=== PATIENT | female | born 1990 | race Caucasian/White ===

== ENCOUNTER 2020-02-17 19:01 | Emergency (ER) | payer OTHER ==
[2020-02-17] MEDS ORDERED: TETANUS & DIPHTHERIA TOX,ADULT 0.5 ML VIAL ONE (19:52)
[2020-02-17] MEDS ORDERED: ACETAMINOPHEN 500 MG TAB ONE (19:52)
--- NOTE | 2020-02-17 20:41 | ER ---
Nurse's Notes [facility] Name: Lou Purvis Age: 29 yrs Sex: Female : 1990 Arrival Date: 02/17/2020 Time: 19:04 Bed 24 Private MD: Diagnosis: Body Fluid Exposure;Puncture Wound from Fish Hook Presentation: 02/16 18:52 Chief complaint: Patient states: was on a call earlier with a pediatric pt (she works for [employer]) that had a fishhook in her, the pt started getting scared after the grandmother told her we would put needles in her. The fish hook came out of her pt and into herself on her on her left middle finger. Fish hook is no longer in her. Needs a HIV and Hepatitis panel drawn. Coronavirus screen: Client denies travel out of the [place] in the last 14 days. At this time, the client does not indicate any symptoms associated with coronavirus-19. Ebola Screen: No symptoms or risks identified at this time. Initial Sepsis Screen: Does the patient meet any 2 criteria? HR > 90 bpm. No. Patient's initial sepsis screen is negative. Does the patient have a suspected source of infection? No. Patient's initial sepsis screen is negative. Risk Assessment: Do you want to hurt yourself or someone else? Patient reports no desire to harm self or others. Onset of symptoms was February 17, 2020 at 13:00. 18:52 Method Of Arrival: Ambulatory sv 18:52 Acuity: DARRIN 3 sv Triage Assessment: 18:52 General: Appears in no apparent distress. comfortable, Behavior is calm, cooperative, sv appropriate for age. Pain: Denies pain. Neuro: Level of Consciousness is awake, alert, obeys commands, Oriented to person, place, time, situation, Moves all extremities. Full function Gait is steady. Respiratory: Airway is patent Respiratory effort is even, unlabored, Respiratory pattern is regular, symmetrical. Derm: Skin is intact, Skin is pink, warm \T\ dry. Injury Description: Puncture sustained to palmar aspect of distal phalanx of left middle finger was sustained 4-6 hours ago. Historical: - Allergies: 19:09 PENICILLINS; sv 19:09 Reglan; sv 19:09 Phenergan; sv - Home Meds: 19:09 Adderall XR Oral [Active]; Clonazepam Oral as needed [Active]; sv - Immunization history:: Last tetanus immunization: unknown. - Social history:: Smoking status: . Screenin:10 Abuse screen: Denies threats or abuse. Denies injuries from another. Nutritional sv screening: No deficits noted. Tuberculosis screening: No symptoms or risk factors identified. Fall Risk None identified. Vital Signs: 18:52 BP 135 / 102; Pulse 121; Resp 16; Temp 97.3; Pulse Ox 100% ; Weight 108.86 kg; Height 6 sv ft. 1 in. (185.42 cm); 18:52 Body Mass Index 31.66 (108.86 kg, 185.42 cm) sv ED Course: 19:04 Patient arrived in ED. 19:04 Alberto Doan MD is Attending Physician. [facility] 19:08 Triage completed. sv 19:09 Arm band placed on Patient placed in an exam room, on a stretcher. sv 19:10 Patient has correct armband on for positive identification. Bed in low position. sv 19:13 Report given to Tameka GIBSON. sv 20:00 Tameka Gibbs, RN is Primary Nurse. dm5 Administered Medications: 19:40 Drug: Tylenol 1000 mg Route: PO; 5 19:42 Drug: Tetanus-Diphtheria Toxoid Adult 0.5 ml {[employer] Specialist: [employer]. Exp: dm5 06/09/2021. Lot #: [id number]. } Route: IM; Site: right deltoid; 20:46 Drug: Doxycycline 100 mg Route: PO; dm5 Outcome: 20:41 Discharge ordered by . [facility] 20:46 Patient left the ED. 5 Signatures: Tameka Gibbs RN RN dm5 Verde, Stephanie, RN RN Alberto Doan MD MD [facility] Corrections: (The following items were deleted from the chart) 19:10 18:52 Chief complaint: Patient states: was on a call earlier with a pediatric pt that elizabeth had a fishhook in her, the pt started getting scared after the grandmother told her we would put needles in her. The fish hook came out of her pt and into herself on her on her hand. Needs a HIV and Hepatitis panel drawn. 19:12 18:52 Chief complaint: Patient states: was on a call earlier with a pediatric pt (she sv works for [employer]) that had a fishhook in her, the pt started getting scared after the grandmother told her we would put needles in her. The fish hook came out of her pt and into herself on her on her hand. Needs a HIV and Hepatitis panel drawn. elizabeth
--- NOTE | 2020-02-17 20:41 | EDPHYS ---
Physician Documentation [facility] Name: Lou Purvis Age: 29 yrs Sex: Female : 1990 Arrival Date: 02/17/2020 Time: 19:04 Bed 24 Private MD: ED Physician Alberto Doan HPI: 02/16 19:43 This 29 yrs old Female presents to ER via Ambulatory with complaints of mh7 Needle Stick Exposure. 19:43 The patient or guardian reports a puncture wound, fish hook. The complaints affect the mh7 palmar aspect of distal phalanx of left middle finger. Context: The problem was sustained at work, resulted from Removed fish hook from a child's finger. Child was moving around and caused patient to get stuck in finger with fish hook.. Onset: The symptoms/episode began/occurred today, at 13:00. Modifying factors: The symptoms are alleviated by nothing, the symptoms are aggravated by nothing. Associated signs and symptoms: Pertinent negatives: cyanosis distally, decreased sensation distally, fever, nausea, numbness distally, tingling distally, vomiting. Severity of symptoms: At their worst the symptoms were moderate, earlier today, in the emergency department the symptoms have improved, markedly. 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 She removed the fish hook from the child's finger. The child was moving around a lot and this caused the patient to get in her left middle finger with the fish hook. There was some bleeding which has since stopped. She is here for evaluation and labs for blood exposure due to the finger stick. She denies any fever, nausea, vomiting, numbness/tingling, or weakness.. Historical: - Allergies: 19:09 PENICILLINS; sv 19:09 Reglan; sv 19:09 Phenergan; sv - Home Meds: 19:09 Adderall XR Oral [Active]; Clonazepam Oral as needed [Active]; sv - Immunization history:: Last tetanus immunization: unknown. - Social history:: Smoking status: . ROS: 19:43 Constitutional: Negative for fever, chills, and weight loss, Eyes: Negative for injury, mh7 pain, redness, and discharge, ENT: Negative for injury, pain, and discharge, Neck: Negative for injury, pain, and swelling, Cardiovascular: Negative for chest pain, palpitations, and edema, Respiratory: Negative for shortness of breath, cough, wheezing, and pleuritic chest pain, Abdomen/GI: Negative for abdominal pain, nausea, vomiting, diarrhea, and constipation, Back: Negative for injury and pain, : Negative for injury, bleeding, discharge, and swelling, Psych: Negative for depression, anxiety, suicide ideation, homicidal ideation, and hallucinations, Allergy/Immunology: Negative for hives, rash, and allergies, Endocrine: Negative for neck swelling, polydipsia, polyuria, polyphagia, and marked weight changes, Hematologic/Lymphatic: Negative for swollen nodes, abnormal bleeding, and unusual bruising. Exam: 19:43 Constitutional: This is a well developed, well nourished patient who is awake, alert, mh7 and in no acute distress. Head/Face: Normocephalic, atraumatic. Chest/axilla: Normal chest wall appearance and motion. Nontender with no deformity. No lesions are appreciated. 19:43 Respiratory: Lungs have equal breath sounds bilaterally, clear to auscultation and percussion. No rales, rhonchi or wheezes noted. No increased work of breathing, no retractions or nasal flaring. Abdomen/GI: Soft, non-tender, with normal bowel sounds. No distension or tympany. No guarding or rebound. No evidence of tenderness throughout. 19:43 Skin: Warm, dry with normal turgor. Normal color with no rashes, no lesions, and no evidence of cellulitis. 19:43 Cardiovascular: Rate: tachycardic, Rhythm: regular, Pulses: no pulse deficits are appreciated, Heart sounds: normal, normal S1and S2, Edema: is not appreciated, JVD: is not appreciated. 19:43 Musculoskeletal/extremity: Extremities: 19:53 Neuro: Awake and alert, GCS 15, oriented to person, place, time, and situation. mh7 Cranial nerves II-XII grossly intact. Motor strength 5/5 in all extremities. Sensory grossly intact. Cerebellar exam normal. Normal gait. Psych: Awake, alert, with orientation to person, place and time. Behavior, mood, and affect are within normal limits. 19:53 Musculoskeletal/extremity: Extremities: noted in the palmar aspect of distal phalanx of left middle finger: puncture, very small, ROM: intact in all extremities, Circulation is intact in all extremities. Pulses: are normal with no appreciated deficits, Perfusion: the patient is normally perfused throughout, Perfusion: the extremity is normally perfused throughout, Sensation intact. Compartment Syndrome exam of affected extremity: is normal. no pain, no numbness, no tingling, no sensation deficit, no palor, no weak pulses, Joints: All joints appear normal with full range of motion. Weight bearing: able to fully bear weight, without difficulty. Vital Signs: 18:52 BP 135 / 102; Pulse 121; Resp 16; Temp 97.3; Pulse Ox 100% ; Weight 108.86 kg; Height 6 sv ft. 1 in. (185.42 cm); 18:52 Body Mass Index 31.66 (108.86 kg, 185.42 cm) sv MDM: 20:34 Differential diagnosis: contusion, abrasion, needle stick, body fluid exposure. Data [facility] reviewed: vital signs, nurses notes. Data interpreted: Pulse oximetry: on room air is 100 %. Interpretation: normal. Counseling: I had a detailed discussion with the patient and/or guardian regarding: the historical points, exam findings, and any diagnostic results supporting the discharge/admit diagnosis, the need for outpatient follow up, to return to the emergency department if symptoms worsen or persist or if there are any questions or concerns that arise at home. Response to treatment: the patient's symptoms have markedly improved after treatment. Special discussion:. ED course: Discussed prophylaxis for body fluid exposure and fish hook stick. Patient declined HIV prophylaxis at this time. Patient will be notified about test results.. 20:41 Patient medically screened. [facility] 02/16 19:17 Order name: HEPATITIS EXPOSURE PANEL [facility] Administered Medications: 19:40 Drug: Tylenol 1000 mg Route: PO; dm5 19:42 Drug: Tetanus-Diphtheria Toxoid Adult 0.5 ml {[employer] Engraver: [employer] Lab. Exp: dm5 06/09/2021. Lot #: [id number]. } Route: IM; Site: right deltoid; 20:46 Drug: Doxycycline 100 mg Route: PO; dm5 Disposition: 02/17/20 20:41 Discharged to Home. Impression: Body Fluid Exposure, Puncture Wound from Fish [place]. - Condition is Stable. - Discharge Instructions: Puncture Wound, [id number], Body Fluid Exposure Information. - Prescriptions for Doxycycline Hyclate 100 mg Oral Tablet - take 1 tablet by ORAL route every 12 hours; 20 tablet. - Medication Reconciliation Form, Thank You Letter, Antibiotic Education, Prescription Opioid Use form. - Follow up: Private Physician; When: 1 - 2 days; Reason: Worsening of condition, Recheck today's complaints, Continuance of care, Re-evaluation by your physician. - Problem is new. - Symptoms have improved. Signatures: Dispatcher [employer] [facility] Tameka Gibbs RN RN dm5 Evelyn Medina RN RN sv Holmes, Maurice, MD MD mh7 Corrections: (The following items were deleted from the chart) 20:02 19:17 Urine Test ordered. [place] [id number] 20:30 19:21 HIV (1 ordered. [facility] 20:46 20:41 02/17/2020 20:41 Discharged to Home. Impression: Body Fluid Exposure; Puncture dm5 Wound from Fish [place]. Condition is Stable. Forms are Medication Reconciliation Form, Thank You Letter, Antibiotic Education, Prescription Opioid Use. Follow up: Private Physician; When: 1 - 2 days; Reason: Worsening of condition, Recheck today's complaints, Continuance of care, Re-evaluation by your physician. Problem is new. Symptoms have improved. mh7
[2020-02-17] MEDS ORDERED: DOXYCYCLINE 100 MG CAP PO ONE (20:56)
[2020-02-20 19:17] LABS: HBsAG Nonreactive (Nonreactive)
[2020-02-21 12:16] LABS: HIV AG/AB 4TH GEN Non-reactive (Non-reactive)
== END 2020-02-17 20:46 | disposition home or self-care (01) ==
LOC: ER 19:01
DX: S61.233A Puncture wound without foreign body of left middle finger without damage to nail, initial encounter (principal); Z77.21 Contact with and (suspected) exposure to potentially hazardous body fluids; Z23 Encounter for immunization; Z88.0 Allergy status to penicillin; Z88.8 Allergy status to other drugs, medicaments and biological substances
CPT/HCPCS: 80074; 86705; 86803; 87340; 87389; 90471; 90714; 99282